=== PATIENT | female | born 1985 ===

== ENCOUNTER → 2019-03-10 | Outpatient (CLI) | payer BC ==
[~2019-03-10] VITALS: Ht 162.6 cm; Wt 84.4 kg
[~2019-03-10] MED LIST: IBUPROFEN 800800 M1 PO; MEDROLDOSEPACK PO; MOBIC15 MG PO; XANAX 0.25 MG0.25 MG PO
--- NOTE | ~2019-03-10 | HPC ---
[facility] [address] [address] PAIN MANAGEMENT CONSULTATION Name: SERA RODRIGUEZ Room #: REG YAEL Sierra.#: [id number] Admission: 03/10/19 ������������������ Attend Phys: Cameron Mariano MD Discharge: ������������������ Date of : 89 Report #: [id number] THIS REPORT FOR: //name// CC: AVRIL physician/PCP Cameron Mariano DATE OF SERVICE: 03/10/2019 CHIEF COMPLAINT: Pain in both legs when resting as well as in the posterior calves. HISTORY OF PRESENT ILLNESS: The patient is a 33-year-old female who has been referred to the Pain Clinic for evaluation. States that she has had nerve pain in her legs. Notes that the pain is problematic when she is resting. Pain is worse when she elevates her legs. She is not sure that anything makes it significantly better. Described is periodic, throbbing, stabbing and rates it as a 6 today. Oftentimes averages an 8/10. She denies any trauma. Denies any bowel or bladder dysfunction. Denies any saddle numbness. She has not had surgery. ALLERGIES: No known drug allergies. CURRENT MEDICATIONS: Ibuprofen 800 mg q. 8 hours, Xanax 0.25 mg. PAST MEDICAL HISTORY: Chronic leg pain. PAST SURGICAL HISTORY: 03/19/2006, 07/08/2018. SOCIAL HISTORY: She works at [employer]. She is working at this juncture. REVIEW OF SYSTEMS: Generally good health, fever, night sweats, fatigue, headaches, some shortness of breath when lying flat on her back, insomnia. LABORATORY DATA: No laboratory values are available at the time of our interview. PAIN CLINIC ASSESSMENT/PQRS: 1. The patient is not being treated for osteoarthritis or rheumatoid arthritis. 2. Height 5 feet 4 inches, weight 186 pounds, BMI is 31.9. 3. Vital signs: Blood pressure 103/73, pulse 60, respiratory rate is 99%. 4. Pain intensity 05/10. 5. Fall risk. The patient has not fallen in the last 3 months. 6. Blood thinner. The patient is not on a blood thinning medication. 7. Hypertension. The patient is not being treated for hypertension. 8. Opioid greater than 6 weeks. The patient is not on opioid medication. 9. Risk assessment tool is moderate for opioid use. [address] [address] PAIN MANAGEMENT CONSULTATION Name: SERA RODRIGUEZ Room #: REG LUIZA Mariela.#: [id number] Admission: 03/10/19 ������������������ Attend Phys: Cameron Mariano MD Discharge: ������������������ Date of : [birth year] Report #: [id number] 10. Functional assessment tool . 11. Recreational drug use. The patient denies use of recreational drugs. 12. Tobacco: The patient is a former smoker. 13. Alcohol: The patient denies use of alcoholic beverages. PHYSICAL EXAMINATION: GENERAL: The patient is a well-developed, well-nourished black female. Appears her stated age. She is alert and oriented x 3. Affect is appropriate. Speech is fluent. HEENT: Normocephalic, atraumatic. Extraocular eye muscles intact. Sclerae nonicteric. Mucous membranes moist. NECK: Without adenopathy or JVD. Upper extremity muscle strength judged to be 5/5 for the major muscle groups of the upper extremity. Deep tendon reflexes +1 for the biceps bilaterally. HEART: Regular rate. S1, S2. LUNGS: Clear to auscultation without rhonchi or rales. The patient without significant scoliosis, kyphosis or lordosis. The patient has some pain and discomfort in the L5-S1 dermatomal distribution with pain that radiates down into her knee on the right side. Forward bending to 90 degrees was not problematic. Lumbar extension was not very problematic. Deep tendon reflexes are +2 at the knees bilaterally and absent at the ankles bilaterally. Left and right lateral leaning was not problematic. Left and right lateral rotation were not problematic. IMPRESSION: Back pain with pain radiating down in the posterior portion of the right leg to the knee in the L5-S1 dermatomal distribution. RECOMMENDATIONS: We discussed treatment options with the patient. At this juncture, she has not undergone physical therapy. She has not had chiropractic treatment. She has not had an MRI. Has taken [id number] medications with some benefit. At this juncture, we will proceed with Mobic medication. She will take 15 mg 1 p.o. daily. The patient will also be given a Medrol Dosepak. Should her pain continue to be problematic in the pain continues to radiate down into the L5-S1 dermatomal distribution on the right. We will then consider an epidural steroid injection. We would like to thank you for letting us participate in her care. We hope she continues to improve. ��������������������������������������������� ���������������������������������������� By: ��������������������������������������������� [id number] Cameron Mariano MD /mercy
[2019-03-10 09:30] VITALS: BP 103/73
--- NOTE | 2019-03-10 09:51 | NUR ---
Pain Clinic Assessment: 1. History of Osteoarthritis: Not Applicable History of Rheumatoid Arthritis: Not Applicable 2. Height: 5 ft. 4 in. 162.6 cm. Weight: 186.0 lb. oz. 84.369 kg. Patient's BMI: 31.9 3. Vital Signs: BP: 103/73 Pulse: 60 Resp: 14 Temp: 02 Sat: 99 ECG Mon: 4. Pain Intensity: 6 5. Fall Risk: Dizziness: N Needs help standing or walking: N Fallen in the last 3 months: N Fall risk comments: 6. Patient on Blood Thinner: None 7. History of Hypertension: N 8. Opioid Therapy greater than 6 weeks: N Opiate Contract Signed: 9. Risk Assessment Tool Provided: 4-mod 10. Functional Assessment Tool: 11. Recreational Drug Use: Never Drug Type: Tobacco Use: Former Smoker Tobacco Type: Amount or Packs/day: How Many Years: Alcohol Use: No Frequency: Quant:
== END ==
LOC: PAIN 07:07
DX: M54.5 Low back pain (principal); M79.604 Pain in right leg; G89.29 Other chronic pain; Z79.899 Other long term (current) drug therapy